=== PATIENT | female | born 1970 | race Caucasian/White ===

== ENCOUNTER 2018-06-03 17:28 | Emergency (ER) | payer MEDICAID ==
[~2018-06-03] VITALS: Ht 165.1 cm; Wt 111.6 kg
[2018-06-03 17:46] VITALS: Ht 165.1 cm; Wt 111.6 kg
[2018-06-03 19:56] VITALS: BP 151/91
== END 2018-06-03 19:56 | disposition home or self-care (01) ==
LOC: ED 17:28
DX: L73.8 Other specified follicular disorders (principal); R21 Rash and other nonspecific skin eruption
CPT/HCPCS: J1885; J2930

== ENCOUNTER 2020-07-22 22:36 | Emergency (ER) | payer SELFPAY ==
[~2020-07-22] VITALS: Ht 165.1 cm; Wt 95.3 kg
[2020-07-22 22:38] VITALS: Ht 165.1 cm; Wt 95.3 kg
[2020-07-22 23:44] LABS: BASOPHIL % 0.6 % (0.2-1.3); PLATELET COUNT 265 x10^3mcL (179-408); RED CELL DISTRIBUTION WIDTH 13.1 % (12.3-17.7)
[2020-07-22 23:52] LABS: CALCIUM 9.5 mg/dL (8.5-10.1); CARBON DIOXIDE 31.8 mmol/L (21-32); CHLORIDE SERUM 100 mmol/L (98-107); CREATININE SERUM 0.7 mg/dL (0.6-1.0); GFR1 > 60 mL/min; GLUCOSE SERUM 145 mg/dL (74-106); POTASSIUM SERUM 3.6 mmol/L (3.5-5.1); SODIUM SERUM 139 mmol/L (136-145)
[2020-07-22 23:57] LABS: ALBUMIN 3.9 g/dL (3.4-5.0); ALKALINE PHOSPHATASE 95 U/L (46-116); ALT/SGPT 26 U/L (14-59); AST/SGOT 17 U/L (15-37); BILIRUBIN TOTAL 0.4 mg/dL (0.20-1.00); TOTAL PROTEIN, SERUM 8.2 g/dL (6.4-8.2)
[2020-07-23 00:16] VITALS: BP 139/98
== END 2020-07-23 00:16 | disposition home or self-care (01) ==
LOC: ED 22:36
PROVIDERS: Emergency Medicine
DX: I10 Essential (primary) hypertension (principal); F17.210 Nicotine dependence, cigarettes, uncomplicated; Z71.6 Tobacco abuse counseling; Z90.49 Acquired absence of other specified parts of digestive tract
CPT/HCPCS: 83880; 87804; 99406